=== PATIENT | male | born 1960 | race Caucasian/White ===

== ENCOUNTER → 2021-10-03 | Outpatient (CLI) | payer OTHER ==
--- NOTE | 2021-10-03 14:25 | Diagnostic Imaging Report ---
INDICATION: Bilateral knee pain for 3 months. TIME OF EXAM: 11:48 AM Three views of each knee were obtained. Right knee does show severe medial compartmental and patellofemoral compartmental degenerative change with significant joint space narrowing and marginal spurring. Lateral compartments fairly well maintained. There are osseous densities noted about the right knee, perhaps on the basis of synovial osteochondromas. Left knee shows fairly significant medial compartmental degenerative change. There is also significant patellofemoral degenerative change. No fractures are seen. There is no effusion. IMPRESSION: Severe bilateral degenerative changes, particularly involving the medial and patellofemoral compartments bilaterally. No acute fractures are seen. Dictated by: Dictated on workstation # [id number]
== END ==
LOC: RAD FS 11:37
PROVIDERS: ATTEND Nurse Practitioner
DX: M17.0 Bilateral primary osteoarthritis of knee (principal)

== ENCOUNTER 2021-10-29 19:18 | Emergency (ER) | payer OTHER ==
[2021-10-29 19:28] VITALS: BP 204/101
[2021-10-29] MEDS ORDERED: AUGMENTIN 875 MG TAB (AMOXICILLIN/CLAVULANATE) PO STA (19:46)
[2021-10-29] MEDS ORDERED: AMOX1TAB12 PO (19:52)
--- NOTE | 2021-10-29 19:52 | ED Upper Extremity ---
General Chief Complaint: Foreign Body Stated Complaint: LEFT FINGER INJURY Nursing Triage Note: pt presents with fish hook in finger on left hand. no current bleeding./ Source: patient History of Present Illness Date Seen by Provider: Oct 29, 2021 Time Seen by Provider: 19:20 Initial Comments 60-year-old male presenting with fishhook in his left index finger. He had accidentally got the fishhook into his finger and was unable to remove it by himself at home. He is right-hand dominant. He believes his last tetanus was less than 5 years ago. He denies any allergies to medications. He does have high blood pressure and is anxious and stressed about the fishhook in his finger. He denies having headache, blurred vision, nausea, vomiting, chest pain, shortness of breath. 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) Severity: mild Pain/Injury Location: left 2nd finger Modifying Factors: Worse With Movement Allergies and Home Medications Allergies Coded Allergies: No Known Drug Allergies (Unverified , 10/29/21) Patient Home Medication List Home Medication List Reviewed: Yes Amoxicillin/Potassium Clav (Amox Tr-K Clv 875-125 mg Tab) 1 Each Tablet, 1 EACH PO BID Prescribed by: KANNAN ODONNELL on 10/29/211951 Review of Systems Constitutional: No chills, No fever EENTM: no symptoms reported Respiratory: no symptoms reported Cardiovascular: no symptoms reported Gastrointestinal: no symptoms reported Genitourinary: no symptoms reported Musculoskeletal: muscle pain (Mild pain at the left index fingertip where the fishhook is embedded) Skin: see HPI (Gaastra embedded in left index finger) Psychiatric/Neurological: Denies Numbness, Denies Paresthesia, Denies Weakness Past [id number] Hx Patient Social History Tobacco Use?: No Substance use?: No Alcohol Use?: No Immunizations Up To Date Influenza Vaccine Up-to-Date: No; Not Current Past Medical History Surgery/Hospitalization HX: Hypertension Physical Exam Vital Signs Vital Signs - First Documented 10/29/21 19:28 Temp 36.3 Pulse 81 Resp 18 B/P (MAP) 204/101 (135) Pulse Ox 95 O2 Delivery Room Air Capillary Refill : Height, Weight, BMI Height: '" Weight: lbs. oz. kg; BMI Method: General Appearance: WD/WN, no apparent distress Cardiovascular: normal peripheral pulses Hand: Left, soft tissue tenderness (Mild tenderness to the left index finger where he has fishhook embedded) Neurologic/Tendon: normal sensation, normal motor functions, normal tendon functions Neurologic/Psychiatric: alert, oriented x 3 Skin: warm/dry Procedures/Interventions I&D : Site: Left index finger I & D Procedure: betadine prep Progress After obtaining verbal consent from the patient his finger was soaked in Betadine and sterile water. Then using 1% plain lidocaine a digital ring block was used to anesthetize his index finger. A blunt tipped needle was inserted over the puncture wound and covered the karthik of the fishhook. Then using a needle retail delivery driver to secure the fishhook it was removed without incident. Bleeding was controlled with pressure. Patient had a sterile dressing applied. Counseled on follow-up and return precautions. Started on Augmentin for possible infection and wound prophylaxis. Progress/Results/Core Measures Results/Orders My Orders Orders - KANNAN ODONNELL MD Amoxicillin/Clavulanate Tablet (Augmenti (10/29/21 19:46) Vital Signs/I&O 10/29/21 19:28 Temp 36.3 Pulse 81 Resp 18 B/P (MAP) 204/101 (135) Pulse Ox 95 O2 Delivery Room Air Blood Pressure Mean: 135 Progress Progress Note : Progress Note Gaastra was removed from the left index finger after applying a digital ring block. Wound was cleaned with Betadine and sterile water. Patient was started on Augmentin to treat for prophylactic infection due to the puncture wound. Counseled to check with clinic about tetanus as he believes it is less than 5 years since his last update. Departure Impression Primary Impression: Fish hook injury of left index finger Qualified Codes: S69.92XA - Unspecified injury of left wrist, hand and finger(s), initial encounter Disposition: 01 HOME, SELF-CARE Condition: Stable Departure-Patient Inst. Decision time for Depature: 19:47 Referrals: JOBY POOLE APRN (PCP) Primary Care Physician [facility] (Family) Primary Care Physician Patient Instructions: Common Finger Injuries ED, Foreign Body in Skin ED, Removal of Foreign Body in Skin Add. Discharge Instructions: Keep dressing clean and dry for first 24 hours. Try to elevate hand above heart level to help decrease the swelling, bleeding and pain. After 24 hours you may remove the dressing and clean the wound with soap and water. Then apply antibiotic ointment and a band aid to cover the wound as needed if it might get dirty. Take the full course of antibiotic to treat for puncture wound and help prevent infection. If you see redness streaking up your finger and hand, increasing swelling, pus draining from wound or fever over 101 F then return or seek medical care for further treatment. Check with clinic in the morning and if it has been more than 5 years since you had a tetanus shot you should update that in the next 72 hours. All discharge instructions reviewed with patient and/or family. Voiced understanding. Scripts Amoxicillin/Potassium Clav (Amox Tr-K Clv 875-125 mg Tab) 1 Each Tablet 1 EACH PO BID for fishhook in finger for 7 Days, #14 TAB 0 Refills Prov: KANNAN ODONNELL MD 10/29/21 KANNAN ODONNELL MD Oct 29, 2021 19:52
== END 2021-10-29 19:56 | disposition home or self-care (01) ==
LOC: EDUNIT# 19:18 → ER FS 19:21
DX: S69.92XA Unspecified injury of left wrist, hand and finger(s), initial encounter (principal); W45.8XXA Other foreign body or object entering through skin, initial encounter
CPT/HCPCS: 99283